=== PATIENT | female | born 1965 | race Caucasian/White ===

== ENCOUNTER 2016-07-25 10:09 | Observation (INO) ==
[2016-07-25] MEDS ORDERED: Aspirin 81 MG TAB.CHEW PO ONE (10:13)
--- NOTE | 2016-07-25 10:21 | Emergency Department Note ---
Disposition Clinical Impression: Chest pain Qualifiers: Chest pain type: unspecified Qualified Code(s): R07.9 - Chest pain, unspecified Disposition: Admitted As Inpatient Condition: Fair Referrals: Shoaib Suarez MD [Primary Care Provider] - Forms: ED Satisfaction Letter Time of Disposition: 11:16 Chest Pain HPI - General Chief Complaint: ED Chest Pain Stated Complaint: chest pain Time Seen by Provider: 07/25/16 10:13 Source: patient Mode of arrival: ambulatory Limitations: no limitations Vital Signs Reviewed: Yes Nursing Notes Reviewed: Yes - History of Present Illness HPI Narrative: 50-year-old who presents [facility] department complaining of chest pain. Patient states she's been having chest pain off and on since Sunday (3 days). Patient has no cardiac history. Risk factors are cigarette smoking and family history. Pt complaint: chest pain Onset (ago): day(s) Duration: intermittent (3) Onset: during rest Pain Location: substernal, left chest Quality: tightness Improves with: nothing Worsens with: nothing Associated symptoms: Reports: dyspnea Treatments prior to arrival chest pain: none - Related Data Allergies Allergy/AdvReac Type Severity Reaction Status Date / Time codeine Allergy Mild other Verified 07/25/16 10:51 acetaminophen [From Percocet] AdvReac Nausea Verified 07/25/16 10:51 Oxycodone [From Percocet] AdvReac Nausea Verified 07/25/16 10:51 All systems ED: reviewed and negative except as stated. Constitutional: Denies: fever, chills, weakness, weight change Eyes: Denies: eye pain, eye discharge, vision change ENT ED: Denies: ear pain, throat pain, dental pain, hearing loss, epistaxis, congestion, dysphagia Cardiovascular: Reports: chest pain. Denies: palpitations, dyspnea on exertion , edema, syncope Respiratory: Denies: cough, dyspnea, wheezes, hemoptysis, stridor Gastrointestinal: Denies: abdominal pain, nausea, vomiting, diarrhea, constipation, hematemesis, melena, hematochezia Genitourinary: Denies: dysuria, frequency, hematuria, discharge Musculoskeletal: Denies: back pain, neck pain, arthralgia, myalgia Integumentary: Denies: rash, abrasion, lesions Neurological: Denies: headache, weakness, numbness, paresthesias, confusion, abnormal gait, vertigo Psychiatric: Denies: anxiety, depression, suicidal thoughts, homicidal thoughts , auditory hallucinations, visual hallucinations Endocrine: Denies: fatigue Hematological/Lymphatic: Denies: easy bleeding, easy bruising Allergic/Immunologic: Denies: facial swelling, urticaria Physical Exam - General Limitations: no limitations - Head Head exam: atraumatic, normocephalic, normal inspection - Eye Eye exam: Present: normal appearance, PERRL, EOMI - ENT ENT exam: normal exam, normal oropharynx, mucous membranes moist - Neck Neck exam: Present: normal inspection, full ROM, trachea midline - Chest Chest inspection: Present: normal inspection, symmetric chest wall rise - Respiratory Respiratory exam: Present: normal lung sounds bilaterally - Cardiovascular Cardiovascular exam: Present: regular rate, normal rhythm, normal heart sounds - Abdominal Exam Abdominal exam: Present: soft, Non-Tender. Absent: tenderness, distention, guarding, rebound, rigidity - Extremities Exam Extremities exam: Present: normal inspection, full ROM. Absent: tenderness, pedal edema - Expanded Lower Extremity Exam Neurovascular/Tendon exam: Absent: motor deficit, sensory deficit, tendon deficit Gait: observed and normal - Back Exam Back exam: Present: normal inspection, full ROM. Absent: tenderness - Neurological Exam Neurological exam: Present: alert, oriented X3 - Psychiatric Psychiatric exam: Present: normal affect, normal mood - Skin Skin exam: Present: warm, dry, intact, normal color Course - Reevaluation(s) Reevaluation #1: 50-year-old with risk factors who comes in complaining of chest pain. Workup is negative in the ER. Patient will be admitted for rule out. Time: 12:19 - Consultations Consultation #1: Discussed with , admit. Time: 12:19 Vital Signs Pulse Rate 70 07/25/16 11:20 Respiratory Rate 18 07/25/16 11:20 Blood Pressure 145/87 07/25/16 11:20 Pulse Rate 70 07/25/16 11:20 Respiratory Rate 18 07/25/16 11:20 Blood Pressure 140/88 07/25/16 11:23 Chest Pain - Lab Data Lab results reviewed: Yes I reviewed the patient's lab results. Result diagrams: 07/25/16 10:43 07/25/16 10:43 Lab Results 07/25/16 07/25/16 07/25/16 Range/Units 10:43 10:43 10:43 WBC 8.0 (4.3-11.1) K/mcL RBC 4.40 (3.82-4.97) M/mcL Hgb 13.2 (11.5-15.4) g/dL Hct 39.9 (35.3-44.9) % MCV 90.7 (83.0-100.0) fL MCH 30.0 (28.0-33.3) pg MCHC 33.1 (31.6-35.5) g/dL RDW 12.4 (11.5-14.5) % Plt Count 397 (140-400) K/mcL MPV 9.3 L (9.4-12.4) fL Immature Gran % 0.2 (0-4) % Seg Neutrophils % 68.0 % Lymphocytes % 22.2 % Monocytes % 7.7 % Eosinophils % 1.2 % Basophils % 0.7 % Neutrophils # 5.4 (1.6-8.9) K/mcL Lymphocytes # 1.8 (0.6-4.6) K/mcL Monocytes # 0.6 (0.0-1.3) K/mcL Eosinophils # 0.1 (0.0-0.6) K/mcL Basophils # 0.1 (0.0-0.2) K/mcL PT 11.4 (9.4-12.1) Seconds INR 1.1 APTT 33.5 (26.0-36.0) Seconds Sodium (136-145) mEq/L Potassium (3.5-4.5) mEq/L Chloride (98-109) mEq/L Carbon Dioxide (19-29) mEq/L BUN (7-20) mg/dL Creatinine (0.57-1.11) mg/dL Est GFR ( Amer) (> 60) Est GFR (Non-Af Amer) (> 60) BUN/Creatinine Ratio (6-26) Glucose (70-99) mg/dL Calculated Osmolality (280-300) Calcium (8.6-10.8) mg/dL Troponin I (0-0.03) ng/mL B-Natriuretic Peptide 56 (0-100) pg/mL 07/25/16 07/25/16 Range/Units 10:43 10:43 WBC (4.3-11.1) K/mcL RBC (3.82-4.97) M/mcL Hgb (11.5-15.4) g/dL Hct (35.3-44.9) % MCV (83.0-100.0) fL MCH (28.0-33.3) pg MCHC (31.6-35.5) g/dL RDW (11.5-14.5) % Plt Count (140-400) K/mcL MPV (9.4-12.4) fL Immature Gran % (0-4) % Seg Neutrophils % % Lymphocytes % % Monocytes % % Eosinophils % % Basophils % % Neutrophils # (1.6-8.9) K/mcL Lymphocytes # (0.6-4.6) K/mcL Monocytes # (0.0-1.3) K/mcL Eosinophils # (0.0-0.6) K/mcL Basophils # (0.0-0.2) K/mcL PT (9.4-12.1) Seconds INR APTT (26.0-36.0) Seconds Sodium 140 (136-145) mEq/L Potassium 3.9 (3.5-4.5) mEq/L Chloride 107 (98-109) mEq/L Carbon Dioxide 26 (19-29) mEq/L BUN 17 (7-20) mg/dL Creatinine 0.76 (0.57-1.11) mg/dL Est GFR ( Amer) > 60 (> 60) Est GFR (Non-Af Amer) > 60 (> 60) BUN/Creatinine Ratio 22 (6-26) Glucose 105 H (70-99) mg/dL Calculated Osmolality 292 (280-300) Calcium 9.0 (8.6-10.8) mg/dL Troponin I 0.00 (0-0.03) ng/mL B-Natriuretic Peptide (0-100) pg/mL - Radiology Data Radiology results reviewed: Yes I reviewed the patient's radiology results. Chest X-Ray 07/25/16 10:13 IMPRESSION: No acute cardiopulmonary process. D/ / 07/25/2016 11:01:00 Renay Romero MD / [facility] Interpreting Provider: Renay Romero MD - EKG Data EKG attestation: Yes I reviewed and interpreted this EKG. EKG shows normal: sinus rhythm Rate: normal Rhythm: NSR Interpretation: no acute changes Heart Score - Score History: Moderately Suspicious EKG: Normal Age: 45-65 Risk Factors: 1-2 risk factors Troponin: Less than normal limit HEART Score Total: 3
[2016-07-25 10:57] LABS: Basophils # 0.1 K/mcL (0.0-0.2); Basophils % 0.7 %; Eosinophils # 0.1 K/mcL (0.0-0.6); Eosinophils % 1.2 %; Hematocrit 39.9 % (35.3-44.9); Hemoglobin 13.2 g/dL (11.5-15.4); Immature Granulocytes % 0.2 % (0-4); Lymphocytes # 1.8 K/mcL (0.6-4.6); Lymphocytes % 22.2 %; Mean Corpuscular HGB Conc 33.1 g/dL (31.6-35.5); Mean Corpuscular Volume 90.7 fL (83.0-100.0); Mean Platelet Volume 9.3 fL (9.4-12.4); Monocytes # 0.6 K/mcL (0.0-1.3); Monocytes % 7.7 %; Neutrophils # 5.4 K/mcL (1.6-8.9); Platelet Count 397 K/mcL (140-400); Red Cell Distribution Width 12.4 % (11.5-14.5)
[2016-07-25 11:08] LABS: BUN/Creatinine Ratio 22 (6-26); Blood Urea Nitrogen 17 mg/dL (7-20); Carbon Dioxide 26 mEq/L (19-29); Chloride 107 mEq/L (98-109); Glucose 105 mg/dL (70-99); Osmolality,Calculated 292 (280-300); Potassium 3.9 mEq/L (3.5-4.5); Sodium 140 mEq/L (136-145); eGFR For African Americans > 60 (> 60); eGFR For Non-African Americans > 60 (> 60)
[2016-07-25 11:13] LABS: INR 1.1; Prothrombin Time 11.4 Seconds (9.4-12.1)
[2016-07-25 11:15] LABS: Activated Partial Thrombo Time 33.5 Seconds (26.0-36.0)
[2016-07-25] MEDS ORDERED: Ibuprofen 400 MG TABLET PO PRN (13:48)
[2016-07-25] MEDS ORDERED: Naloxone 0.4 MG/ML INJ IVP PRN (13:48)
--- NOTE | 2016-07-25 14:32 | Event Note ---
Date of Encounter: 07/25/16 Time of Encounter: 14:30 Patient seen and examined with nurse practitioner. Chest pain with a typical features. No relation to exception or relief by rest. EKG shows no ST segment shifts. Would admit to the hospital and check serial cardiac markers. if they are normal treadmill will be performed. No risk factors for PE. Full code.
[2016-07-25] MEDS: *HR* Heparin 5,000 UNIT/ML VIAL SQ SCH (17:39)
--- NOTE | 2016-07-25 18:03 | Internal Med History&Physical ---
Date of Encounter: 07/25/16 Time of Encounter: 12:30 Assessment and Plan (1) Chest pain Current visit: Yes Status: Acute Assess: Patient presents with new onset of chest pain that has been present for the past four days and she describes it as a chest tightness that causes numbness and tingling in her left arm. Plan: Trend troponins x3 Continuous cardiac monitoring ordered Repeat EKG Cardiology consult if troponins are elevated 81 mg aspirin therapy ordered SP exercise stress test ECG ordered Heparin 5,000 units SQ Q12HR ordered as DVT prophylaxis Monitor patient's vital signs Qualifiers: Chest pain type: unspecified Qualified Code(s): R07.9 - Chest pain, unspecified (2) DVT prophylaxis Current visit: Yes Status: Acute Assess: Patient is being placed on DVT prophylaxis due to chief complaint of new chest pain and inpatient status. Plan: Heparin 5,000 units SQ Q12HR ordered Monitor patient's vital signs Internal Medicine - H&P: HPI Chief complaint: Chest pain Admitted From: Emergency Dept Plans for Post Hospital Care: Home History of present illness: Ms. Mederos is a 50 year old female who presents from the ED with a chief complaint of new onset of chest pain that has been present for the past four days. Patient denies any previous cardiac issues or history. Ms. Mederos describes her chest pain as a tightening in her left chest that causes numbness and tingling in her left arm and hand. Patient reports smoking 1/2 pack of cigarettes per day. Patient denies history of HTN, diabetes, hyperlipidemia, pedal edema, or previous cardiac issues/history. Patient reports feeling fatigued for the past 4 days coinciding with chest pain. Patient to be admitted as observation status with low-dose aspirin therapy, continuous cardiac monitoring, troponin trending x3, repeat EKG, exercise stress test ordered, and Heparin 5,000 units SQ Q12HR ordered as DVT prophylaxis. Patient to be monitored while in-patient status. Past Med Surg Social Fam HX - Past Medical History Source: patient Medical history: other (Diverticulosis) Psychiatric history: anxiety, depression - Past Surgical History Surgical History: orthopedic, other (Right knee replacement, right shoulder replacement, C5-C6 disc replacement), other (Tonsillectomy, tubal ligation) - Social History Smoking Status: Current every day smoker Packs per day: 1/2 PPD Smokeless Tobacco Status: No Alcohol use: occasionally Drug use: none Current living situation: Home Activity Level: Independent ambulation Recent Out of Country Travel Within the Last 8 Weeks: No Exposure or Possible Exposure to Illness During Travel: No - Family History Father Race: Family Member Ethnicity: Non- Living Status: Still Living Hx Family Endocrine Disorder: Yes (DM) Mother Race: Family Member Ethnicity: Non- Living Status: Still Living Hx Family Neuromuscular Disorders: Yes (Parkinson's disease) Sister Race: Family Member Ethnicity: Non- Living Status: Still Living Hx Family Medical Disorders: No Brother Race: Family Member Ethnicity: Non- Living Status: Still Living Hx Family Genitourinary Disorders: Yes (Bladder/kidney issues) Internal Medicine - H&P: Meds Calcium Carbonate/Vitamin D3 [Calcium 600 + Vit D Softgel] 1 each PO DAILY 07/25 [History] Dicyclomine [Bentyl] 20 mg PO BID 07/25/16 [History] Duloxetine HCl [Cymbalta] 60 mg PO DAILY 07/25/16 [History] Loratadine [Allergy Relief] 10 mg PO DAILY 07/25/16 [History] Allergies codeine Allergy (Mild, Verified 07/25/16 13:10) other pt states codeine effects kidney function acetaminophen [From Percocet] Adverse Reaction (Verified 07/25/16 13:10) Nausea Oxycodone [From Percocet] Adverse Reaction (Verified 07/25/16 13:10) Nausea All Systems PM: A 10-system review of systems was performed and is negative for pertinent findings except as documented above in the HPI. - Constitutional Constitutional: as per HPI, fatigue - EENT Eyes: no change in vision, no discharge, no pain, no photophobia Ears: no ear discharge, no ear pain, no tinnitus Nose, mouth and throat: no dysphagia, no nasal discharge, no neck pain, no sore throat - Breasts Breasts: as per HPI - Cardiovascular Cardiovascular ROS IM: as per HPI, chest pain (Patient reports chest discomfort that feels like a tightening in her left chest with some numbness/tingling in left arm. Reports pain has been present for four days.) - Respiratory Respiratory: no cough, no dyspnea, no wheezing, no excessive phlegm production - Gastrointestinal Gastrointestinal: no abdominal pain, no diarrhea, no hematemesis, no hematochezia, no melena, no nausea, no vomiting - Genitourinary Genitourinary: no change in urinary stream, no dysuria, no flank pain, no hematuria Menstruation: as per HPI - Musculoskeletal Musculoskeletal ROS IM: as per HPI, neck pain (Patient reports neck pain due to having disc replacement surgery at C5-C6 disc location) - Integumentary Integumentary IM: no rash, no unusual bruising - Neurological Neurological ROS: no confusion, no convulsions, no focal weakness, no numbness, no tingling, no tremor(s) - Psychiatric Psychiatric: as per HPI, anxiety, depression - Endocrine Endocrine IM: as per HPI - Hematologic/Lymphatic Hematologic/Lymphatic: no easy bruising - Allergic/Immunologic Allergic/Immunologic: as per HPI - Constitutional Vitals: Temp Pulse Resp BP Pulse Ox 97.9 F 69 17 136/86 97 07/25/16 14:03 07/25/16 14:03 07/25/16 14:03 07/25/16 14:03 07/25/16 14:03 General appearance: Present: cooperative, A&O X 3, pleasant, no acute distress, answers questions appropriately - Head Head exam: Present: atraumatic, normocephalic - Eye Eye exam: Present: conjunctival injection Pupils: Present: PERRL - ENT ENT exam: Present: normal exam, normal external ear exam - Neck Neck exam general surgery: Present: supple, trachea midline. Absent: lymphadenopathy Additional comments: Patient exhibits some tenderness and pain upon examination due to neck surgery. Limited ROM. - Respiratory Respiratory exam: Present: CTAB. Absent: accessory muscle use, rales, rhonchi, wheezes - Cardiovascular Cardiovascular exam: Present: RRR, +S1, +S2. Absent: diastolic murmur, gallop, rubs, systolic murmur - GI/Abdominal GI/Abdominal exam: Present: normal bowel sounds, soft, no peritoneal signs. Absent: distended, tenderness - Rectal Rectal exam: Present: deferred - Additional comments: exam deferred. - Extremities Exam Extremities exam: Present: warm, radial pulses palpable and symetrical. Absent : calf tenderness, cyanotic, pedal edema - Back Exam Back exam: Present: normal inspection - Neurological Exam Neurological exam: Present: CN II-XII intact, oriented X3, no focal deficits. Absent: pronater drift, facial droop, speech deficit - Psychiatric Psychiatric exam: Present: normal affect, normal mood - Skin Skin exam: Present: dry, intact Internal Med - H&P Results - Labs CBC & Chem 7: 07/25/16 10:43 07/25/16 10:43 Labs: Cardiac Enzymes 07/25/16 Range/Units 14:18 Troponin I 0.00 (0-0.03) ng/mL - EKG Data EKG shows normal: sinus rhythm - EKG Data Prior EKG available for review: yes When compared to previous EKG: there is no significant change EKG comments: 07/25/16 18:13 EKG dated 10/13/08 shows sinus rhythm with anterior T-wave changes that are non- specific. EKG dated 07/25/16 shows sinus rhythm and normal EKG. - Diagnostic Studies Chest x-ray Additional comments: 1-View CXR dated 07/25/16 shows lower cervical spine fusion. Trachea is midline. Cardiac silhouette is unremarkable. Lungs clear. There is a right shoulder replacement. No acute pulmonary process.
[2016-07-26 02:38] LABS: Basophils # 0.1 K/mcL (0.0-0.2); Basophils % 0.8 %; Eosinophils # 0.2 K/mcL (0.0-0.6); Eosinophils % 2.2 %; Hematocrit 40.1 % (35.3-44.9); Hemoglobin 13.1 g/dL (11.5-15.4); Immature Granulocytes % 0.1 % (0-4); Lymphocytes # 2.8 K/mcL (0.6-4.6); Lymphocytes % 38.5 %; Mean Corpuscular HGB Conc 32.7 g/dL (31.6-35.5); Mean Corpuscular Hemoglobin 29.6 pg (28.0-33.3); Mean Corpuscular Volume 90.5 fL (83.0-100.0); Mean Platelet Volume 9.6 fL (9.4-12.4); Monocytes # 0.5 K/mcL (0.0-1.3); Monocytes % 6.8 %; Neutrophils # 3.7 K/mcL (1.6-8.9); Platelet Count 379 K/mcL (140-400); Red Blood Count 4.43 M/mcL (3.82-4.97); Segmented Neutrophils % 51.6 %
[2016-07-26 02:56] LABS: Alanine Aminotransferase 27 Units/L (0-55); Albumin 3.6 g/dL (3.5-5.0); Albumin/Globulin Ratio 1.1 (1.1-2.2); Alkaline Phosphatase 80 Units/L (38-126); Aspartate Amino Transferase 27 Units/L (5-34); BUN/Creatinine Ratio 15 (6-26); Bilirubin,Total 0.5 mg/dL (0.2-1.2); Blood Urea Nitrogen 12 mg/dL (7-20); Calcium 9.1 mg/dL (8.6-10.8); Carbon Dioxide 27 mEq/L (19-29); Chloride 105 mEq/L (98-109); Chol/HDL Ratio 4.2 (0-4.9); Cholesterol 212 mg/dL (< 200); Globulin 3.4 g/dL (2.4-3.5); Glucose 87 mg/dL (70-99); HDL Cholesterol 50 mg/dL (40-59); Magnesium 2.3 mg/dL (1.6-2.6); Osmolality,Calculated 289 (280-300); Sodium 140 mEq/L (136-145); eGFR For African Americans > 60 (> 60); eGFR For Non-African Americans > 60 (> 60)
[2016-07-26 03:10] LABS: Potassium 3.8 mEq/L (3.5-4.5)
[2016-07-26 03:29] LABS: LDL Cholesterol,Calculated 130 mg/dL (0-99); Triglycerides 160 mg/dL (< 150)
[2016-07-26] MEDS: *HR* Heparin 5,000 UNIT/ML VIAL SQ SCH (06:20)
[2016-07-26] MEDS ORDERED: Loratadine 10 MG TABLET PO SCH (09:00)
[2016-07-26] MEDS ORDERED: Aspirin 81 MG TAB.CHEW PO SCH (09:00)
[2016-07-26] MEDS ORDERED: Cholecalciferol (D-3) 1,000 UNIT TABLET PO SCH (09:00)
[2016-07-26] MEDS ORDERED: NON-FORMULARY MEDICATION 1 EACH EACH (Calcium Carbonate/Vitamin D3 [Calcium 600 + Vit D So PO SCH (09:00)
[2016-07-26] MEDS ORDERED: Regadenoson 0.4 MG/5 ML SYRINGE IVP ONE (09:15)
--- NOTE | 2016-07-26 13:09 | Nuclear Medicine Stress Report ---
Regadenoson Nuclear Stress Name: Eva Mederos Date of Study: 07/26/2016 Date: 1965 Ht: 70.0 in Medical Record#: [id number] Age: 50 Wt: 180.0 lb Gender: Female Order #: [id number] Location: [facility] Room: [facility] Supervising Provider: Erickson Livingston CNP Reading Physician: Víctor Jansen DO, FACC, FASFL Ordering Physician: Sia Sweeney CNP Primary Care Physician: Shoaib Suarez MD Stress Technologist: Gio Baldwin FLOORING GRADER, CCT Applications Intern: Gregory Hanson Indications: Chest Pain Impression: Pharmacologic stress ECG is negative for ischemia at level of heart rate achieved. Gated EF = 72%. Medium sized, moderate intensity, fixed defect involving the apex and surrounding apical segments. Wall motion is normal. These findings are consistent with artifact. Perfusion imaging was negative for ischemia or infarct. History: History of Smoking Stress Test Summary: Stress Test Type: Pharmacologic Regadenoson 0.4mg/5ml given IV Baseline Information: Initial Heart Rate: 65 Blood Pressure: 140/90 Stress Information: Stress Time: 4 min 00 sec Test Terminated Due to (primary): Completed Protocol Maximum Blood Pressure: 120/82 Maximum Heart Rate: 104 Percent Maximum Heart Rate Achieved: 62 Double Product: 12,480 METS Reached: 1 Symptoms: Shortness of breath, Dizziness, Nausea Nuclear Summary: SPECT myocardial perfusion imaging using Tc99m Sestamibi given intravenously was performed at rest and following cardiac stress testing. The resting images were obtained following initial dose of 11.7 mCi. Following stress an additional dose of 28.6 mCi was given at peak exercise or 30 seconds post regadenoson infusion. Medication Given: Time Medication Dose Units Route Findings: Stress Note * Resting ECG demonstrated normal sinus rhythm. * No baseline arrhythmias were noted. * Pharmacologic stress ECG is negative for ischemia at level of heart rate achieved. * No arrhythmias were noted during stress. * Patient had no chest pain during stress. Hemodynamic responses * Normal hemodynamic responses to pharmacologic stress. Study Quality * Study quality is average. Gated EF % * Gated EF = 72%. Left Ventricle * The left ventricle is not dilated. LVEDV = 99 mL. * Normal wall motion. Apical Perfusion Rest * The apex and surrounding apical segments show a moderate reduction in perfusion. Apical Perfusion Stress * The apex and surrounding apical segments show a moderate reduction in perfusion. TID * No evidence of transient ischemic dilatation. TID ratio = 0.96. Lung Uptake * There is no evidence of increase lung uptake. Updated by Víctor Jansen DO, FACMitch, JAS, JOSI on 07/26/2016 1:03:04 PM electronically signed on 07/26/2016 1:03:46 PM with status of Final
--- NOTE | 2016-07-26 14:22 | Electrocardiograph Report ---
[place] [address] Test Date: 2016-07-25 Pat Name: Eva Mederos Department: 104 Room: 3B Gender: F Corporate Development Associate: DEONTE : 1965 Requested By: Luis Alvarez Order Number: [id number] Reading MD: Adams Cobb MD Measurements Intervals [place] Rate: 72 P: 37 WI: 145 QRS: -8 QRSD: 98 T: 17 QT: 390 QTc: 413 Interpretive Statements SINUS RHYTHM Electronically Signed On 07-26-2016 14:21:10 EDT by Adams Cobb MD
[2016-07-26 14:45] VITALS: BP 142/96
--- NOTE | 2016-07-26 15:10 | Discharge Summary ---
Date of Encounter: 07/26/16 Time of Encounter: 14:00 - Discharge Diagnosis (1) Chest pain Priority: Primary Status: Ruled-out Comments: Chest x-ray negative. Troponins negative. Stress test negative for ischemia or infarct. ACS ruled out. Qualifiers: Chest pain type: unspecified Qualified Code(s): R07.9 - Chest pain, unspecified (2) DVT prophylaxis Priority: Primary Status: Acute Comments: SQ heparin while admitted (3) Tobacco abuse Priority: Secondary Status: Chronic Comments: Declined counseling - Discharge Medications Home Medications: Calcium Carbonate/Vitamin D3 [Calcium 600 + Vit D Softgel] 1 each PO DAILY 07/25 [History] Dicyclomine [Bentyl] 20 mg PO BID 07/25/16 [History] Duloxetine HCl [Cymbalta] 60 mg PO DAILY 07/25/16 [History] Loratadine [Allergy Relief] 10 mg PO DAILY 07/25/16 [History] Allergies/Adverse Reactions: Allergies codeine Allergy (Mild, Verified 07/25/16 13:10) other pt states codeine effects kidney function acetaminophen [From Percocet] Adverse Reaction (Verified 07/25/16 13:10) Nausea Oxycodone [From Percocet] Adverse Reaction (Verified 07/25/16 13:10) Nausea Procedures/tests Complete & Pending: Procedures Performed prior 72 hours Category Date Time Status NM avery perf SPECT multi [NM] Routine Exams 07/26/16 08:42 Taken SP pharm nuclear stress Routine Y 07/26/16 08:41 Completed Date of admission: 07/25/16 12:25 Primary care physician: Shoaib Suarez MD Discharging clinician: Sia Sweeney Anticipated date of discharge: 07/26/16 - Patient Status Disposition: Home, Self-Care Condition: Good Functional capacity at discharge: independent ambulation Overall status at discharge: patient is back to baseline - Discharge Instructions Follow Up With: Shoaib Suarez MD [Primary Care Provider] - 08/02/16 1:30 pm Additional Instructions: Follow-up with primary care provider as scheduled - Diet and Activity Activity: increase activity as tolerated Diet: low salt diet Hospital course: Ms. Mederos is a 50 year old female with past medical history of anxiety/ depression and tobacco abuse. Patient presented to emergency chief complaint new onset of chest pain 4 days. Patient denies any cardiac history. Patient described chest pain as tightening in her left chest that causes numbness and tingling in her left arm and hand. Patient also endorsed fatigue accompanying her chest pain. Workup in the emergency department unremarkable. Chest x-ray negative. Patient was admitted to the hospitalist service for further evaluation and management. Troponins negative 4. Patient had a nuclear stress test that was negative for ischemia or infarct and revealed an ejection fraction of 72%. Acute coronary syndrome ruled out. Patient continued to endorse mild chest soreness on the discharge, consistent with musculoskeletal etiology. Of note, patient was borderline hypertensive at times during this admission but was normotensive without the use of antihypertensive medications. Recommend daily blood pressure checks at home and keeping a log for her primary care provider. She was discharged home in stable condition with close outpatient follow-up recommended. ITS Impressions Chest X-Ray 07/25/16 10:13 IMPRESSION: No acute cardiopulmonary process. D/ / 07/25/2016 11:01:00 Renay Romero MD / [facility] Interpreting Provider: Renay Romero MD Nuclear stress test impression: Pharmacologic stress ECG is negative for ischemia at level of heart rate achieved. Gated ejection fraction equals 72%. Medium-sized, moderate intensity, fixed defect involving the apex and surrounding apical segments. Wall motion is normal. These findings are consistent with artifact. Perfusion imaging was negative for ischemia or infarct. - Time Spent with Patient Total time spent providing and/or coordinating discharge services: - Constitutional Vitals: Temp Pulse Resp BP Pulse Ox 98.3 F 74 16 142/96 94 07/26/16 14:39 07/26/16 14:39 07/26/16 14:39 07/26/16 14:43 07/26/16 14:39 General appearance: Present: cooperative, A&O X 3, pleasant, no acute distress, answers questions appropriately - Head Head exam: Present: atraumatic, normocephalic - Eye Eye exam: Present: PERRL, conjuntiva pink, sclera anicteric Pupils: Present: PERRL - Neck Neck exam general surgery: Present: supple, trachea midline. Absent: lymphadenopathy - Respiratory Respiratory exam: Present: chest wall tenderness, CTAB. Absent: accessory muscle use, rales, respiratory distress, rhonchi, wheezes - Cardiovascular Cardiovascular exam: Present: RRR, +S1, +S2. Absent: diastolic murmur, gallop, rubs, systolic murmur - GI/Abdominal GI/Abdominal exam: Present: normal bowel sounds, soft, no peritoneal signs. Absent: distended, tenderness - Extremities Exam Extremities exam: Present: warm, radial pulses palpable and symetrical. Absent : calf tenderness, cyanotic, pedal edema - Neurological Exam Neurological exam: Present: alert, CN II-XII intact, normal gait, oriented X3, no focal deficits, strengths equal and symetr throughout. Absent: pronater drift, facial droop, speech deficit - Skin Skin exam: Present: dry, intact, normal color, warm
== END 2016-07-26 16:15 | disposition home or self-care (01) ==
LOC: EMEROO 10:09 → 3BNU 10:09
PROVIDERS: ADMIT Hospitalist; ATTEND Nurse Practitioner Family

== ENCOUNTER 2019-04-07 19:03 | Observation (INO) ==
[2019-04-07 20:15] LABS: White Blood Count 10.6 K/mcL (4.3-11.1)
[2019-04-07 20:16] LABS: Basophils # 0.1 K/mcL (0.0-0.2); Basophils % 0.6 %; Eosinophils # 0.1 K/mcL (0.0-0.6); Hematocrit 40.1 % (35.3-44.9); Hemoglobin 13.4 g/dL (11.5-15.4); Immature Granulocytes % 0.3 % (0-4); Lymphocytes # 2.7 K/mcL (0.6-4.6); Lymphocytes % 25.8 %; Mean Corpuscular HGB Conc 33.4 g/dL (31.6-35.5); Mean Corpuscular Hemoglobin 31.1 pg (28.0-33.3); Mean Platelet Volume 9.7 fL (9.4-12.4); Monocytes # 0.8 K/mcL (0.0-1.3); Monocytes % 7.4 %; Neutrophils # 6.9 K/mcL (1.6-8.9); Platelet Count 455 K/mcL (140-400); Red Blood Count 4.31 M/mcL (3.82-4.97); Red Cell Distribution Width 11.8 % (11.5-14.5); Segmented Neutrophils % 64.9 %
[2019-04-07 20:33] LABS: Alanine Aminotransferase 18 Units/L (7-52); Albumin 4.7 g/dL (3.5-5.7); Albumin/Globulin Ratio 1.8 (1.1-2.2); Alkaline Phosphatase 82 Units/L (34-104); Aspartate Amino Transferase 15 Units/L (13-39); BUN/Creatinine Ratio 16 (6-26); Bilirubin,Indirect 0.3 mg/dL (0.0-1.0); Bilirubin,Total 0.3 mg/dL (0.3-1.0); Blood Urea Nitrogen 19 mg/dL (6-20); Calcium 9.9 mg/dL (8.6-10.3); Carbon Dioxide 21 mEq/L (23-29); Chloride 108 mEq/L (98-107); Globulin 2.6 g/dL (2.4-3.5); Glucose 153 mg/dL (70-105); Lipase 44 Units/L (11-82); Osmolality,Calculated 301 (280-300); Potassium 3.7 mEq/L (3.5-5.1); Sodium 143 mEq/L (136-145); Total Protein 7.3 g/dL (6.4-8.9); Troponin I < 0.03 ng/mL (< 0.04); eGFR For African Americans 59 (> 60); eGFR For Non-African Americans 49 (> 60)
[2019-04-07] MEDS ORDERED: 0.9 % Sodium Chloride 1,000 ML IVC ONE (20:38)
[2019-04-07] MEDS ORDERED: Ondansetron 4 MG/2 ML VIAL IVP ONE (20:38)
[2019-04-07 21:42] LABS: Amphetamine Screen,Urine Negative ng/mL (Cutoff=1000); Barbiturate Screen,Urine Negative ng/mL (Cutoff=200); Benzodiazepines Screen,Urine Negative ng/mL (Cutoff=200); Cannabinoid Screen,Urine Negative ng/mL (Cutoff = 50); Cocaine Screen,Urine Negative ng/mL (Cutoff= 300); Opiate Screen,Urine Negative ng/mL (Cutoff=300); Phencyclidine Screen,Urine Negative ng/mL (Cutoff=25)
[2019-04-07] MEDS ORDERED: Aspirin 325 MG TABLET PO ONE (21:47)
[2019-04-07] MEDS ORDERED: *HR* Metoprolol 5 MG/5 ML VIAL IVP ONE (21:48)
[2019-04-07 22:50] LABS: Thyroid Stimulating Hormone 0.033 mcIU/mL (0.340-5.600)
[2019-04-08] MEDS ORDERED: Ondansetron 4 MG/2 ML VIAL IVP PRN (02:06)
[2019-04-08 04:13] LABS: Hematocrit 37.3 % (35.3-44.9); Hemoglobin 12.6 g/dL (11.5-15.4); Mean Corpuscular HGB Conc 33.8 g/dL (31.6-35.5); Mean Corpuscular Hemoglobin 31.2 pg (28.0-33.3); Mean Corpuscular Volume 92.3 fL (83.0-100.0); Mean Platelet Volume 9.4 fL (9.4-12.4); Platelet Count 378 K/mcL (140-400); Red Blood Count 4.04 M/mcL (3.82-4.97); Red Cell Distribution Width 11.9 % (11.5-14.5); White Blood Count 8.7 K/mcL (4.3-11.1)
[2019-04-08] MEDS ORDERED: Naloxone 0.4 MG/ML INJ IVP PRN (04:26)
[2019-04-08 04:34] LABS: BUN/Creatinine Ratio 22 (6-26); Blood Urea Nitrogen 16 mg/dL (6-20); Calcium 8.9 mg/dL (8.6-10.3); Carbon Dioxide 25 mEq/L (23-29); Chloride 109 mEq/L (98-107); Glucose 97 mg/dL (70-105); Osmolality,Calculated 293 (280-300); Potassium 3.5 mEq/L (3.5-5.1); Sodium 141 mEq/L (136-145); eGFR For African Americans > 60 (> 60); eGFR For Non-African Americans > 60 (> 60)
[2019-04-08 04:35] LABS: Troponin I < 0.03 ng/mL (< 0.04)
[2019-04-08] MEDS: *HR* Heparin 5,000 UNIT/ML VIAL SQ SCH ×2 (06:11→17:15)
[2019-04-08] MEDS ORDERED: Regadenoson 0.4 MG/5 ML SYRINGE IVP ONE (06:36)
[2019-04-08] MEDS ORDERED: Venlafaxine XR (24 HR) 150 MG CAP.ER.24H PO ONE (21:30)
[2019-04-09 02:50] LABS: BUN/Creatinine Ratio 28 (6-26); Blood Urea Nitrogen 20 mg/dL (6-20); Calcium 9.3 mg/dL (8.6-10.3); Carbon Dioxide 25 mEq/L (23-29); Chloride 108 mEq/L (98-107); Glucose 100 mg/dL (70-105); Magnesium 2.2 mg/dL (1.6-2.6); Osmolality,Calculated 293 (280-300); Potassium 3.9 mEq/L (3.5-5.1); Sodium 140 mEq/L (136-145); eGFR For African Americans > 60 (> 60); eGFR For Non-African Americans > 60 (> 60)
[2019-04-09] MEDS: *HR* Heparin 5,000 UNIT/ML VIAL SQ SCH (06:43)
[2019-04-09 07:51] VITALS: BP 140/89
[2019-04-09] MEDS ORDERED: Venlafaxine XR (24 HR) 150 MG CAP.ER.24H PO SCH (09:00)
[2019-04-09] MEDS ORDERED: FLU Vac QV 19-20 (6Month+)/PF 0.5 ML SYRINGE IM ONE (09:49)
== END 2019-04-09 10:23 | disposition home or self-care (01) ==
LOC: EMEROOARM 19:03 → CDU 19:03 → SUATTDRO 22:47 → CDU 04-08 00:06
PROVIDERS: ADMIT Internal Medicine; ATTEND Internal Medicine